=== PATIENT | female | born 1950 ===

== ENCOUNTER 2025-07-01 13:00 | Day surgery (SDC) | payer OTHER ==
[2025-06-23 11:13] VITALS: BP 128/74
[~2025-07-01 13:00] MED LIST: ARAVA10 MG PO; DAFLONEX-XL 11300 MG PO; DIOVAN160 M1 PO; FOSAMAX70 MG PO; HYDROCHLOROTHIA25 MG PO; NORVASC5 MG PO; ROSUVASTATIN CAL5 MG PO; SYNTHROID75 MCG PO
[2025-07-01] MEDS ORDERED: CIPROFLOXACIN IN 5 % DEXTROSE 400 MG/200 ML PIGGYBAG IV ONE (13:58)
== END 2025-07-01 17:55 | disposition home or self-care (01) ==
LOC: CIR.AMB 13:00
PROVIDERS: ATTEND Surgery
DX: C50.411 Malignant neoplasm of upper-outer quadrant of right female breast (principal); C50.212 Malignant neoplasm of upper-inner quadrant of left female breast; D48.7 Neoplasm of uncertain behavior of other specified sites; R59.0 Localized enlarged lymph nodes; Z88.0 Allergy status to penicillin